=== PATIENT | female | born 1945 | race Caucasian/White ===

== ENCOUNTER 2022-01-28 13:06 | Outpatient (RCR) | payer MEDICARE, SELFPAY | END 2022-07-27 23:59 | disposition home or self-care (01) | LOC: CCIC 13:06 | PROVIDERS: PCP Physician Assistant Medical; Visit Provider Internal Medicine Hematology & Oncology | DX: D05.12 Intraductal carcinoma in situ of left breast (principal); M85.80 Other specified disorders of bone density and structure, unspecified site | CPT/HCPCS: 99212; 99213; 99214 ==

== ENCOUNTER 2022-06-30 14:15 | Outpatient (RCR) | payer MEDICARE, SELFPAY | END 2022-07-07 16:47 | disposition home or self-care (01) | PROVIDERS: PCP Physician Assistant Medical; Visit Provider Physician Assistant Medical | DX: M81.0 Age-related osteoporosis without current pathological fracture (principal); R26.9 Unspecified abnormalities of gait and mobility; Z51.89 Encounter for other specified aftercare | CPT/HCPCS: 97110; 97112; 97161 ==

== ENCOUNTER 2022-09-15 07:43 | Day surgery (SDC) | payer MEDICARE, SELFPAY ==
[2022-09-15] VITALS (12 sets, daily range): BP systolic 111–152; BP diastolic 52–106; PULSE 72–91; RESP 11–135; TEMP 36.1–36.7; O2SAT 93–100; BMI 36.1
[2022-09-15] MEDS: LACTATED RINGERS 1000 ML 1,000 ML 100 ML IV (08:20)
[2022-09-15] MEDS: SODIUM CHLORIDE 0.9 % (FLUSH) 10 ML SYRINGE IVF (08:20)
--- NOTE | 2022-09-15 08:57 | CRLHL7_ITS ---
For Patients: As a result of the Century Cures Act, medical imaging exams and procedure reports are released immediately into your electronic medical record. You may view this report before your referring provider. If you have questions, please contact your health care provider. Indication: Implant removal Technique: Images of the right knee and tibia and fibula. Comparison : X-ray 07/18/2022 Findings : Previous tibial intramedullary thai and screw have been removed. Old fracture deformity along the distal tibia. Please refer to the performing physician report for full details. Old fracture deformity of the proximal fibula. Five images total 5.3 seconds fluoro time Dictated by Janessa Goddard MD @ 09/15/2022 11:39:27 AM (Electronically Signed)
--- NOTE | 2022-09-15 09:09 | W.ANESCHARGE ---
Anesthesia Charges Start Date/Time Anesthesia Start Date: 09/15/22 Anesthesia Start Time: 09:43 Stop Date/Time Anesthesia Stop Date: 09/15/22 Anesthesia Stop Time: 11:39 Summary Extremes of Age - Over 70 or under 1: MDA
[2022-09-15] MEDS: CEFAZOLIN 2 GM in 0.9 % SODIUM CHLORIDE Mini-bag 100 ML IVPB (09:52)
--- NOTE | 2022-09-15 11:29 | P.ORPRC_ITS ---
Procedure Note Date of procedure: 09/15/22 Procedure: PREOPERATIVE DIAGNOSIS: 1. Right tibia retained deep implant (tibial IM nail) POSTOPERATIVE DIAGNOSIS: 1. Right tibia retained deep implant (tibial IM nail) PROCEDURE: 1. Right tibia retained deep implant open removal (tibial IM nail and interlocking screws) 2. C-arm fluoroscopic imaging (less than 1 hour) interpreted by me throughout the procedure SURGEON: Baljeet Akins MD. DATA SCIENCES DIRECTOR: VALERIE Zamora - Of note, an psychiatric assistant was critical for this case to aid in patient positioning, tissue retraction, limb manipulation/positioning, and closure. ANESTHESIA: General anesthetic IMPLANTS: None TOURNIQUET: 65 minutes at 260 torr COMPLICATIONS: None evident INDICATIONS: The patient is a pleasant 77-year-old female who sustained a right distal 1/3 tibial fracture approximately 1 year ago (09/2021). She underwent tibial IM nail. At that time, the nail was placed with distal interlocking screws holding the fracture stable. Unfortunately, the ostial parotid bone and slight fracture translation cause the nail to become proud distally through the distal tibia. As such, once the fracture was united, decision was made for deep implant removal of the tibial IM nail and the interlocking screws. This was after thorough conversation and helping her understand the pros and cons of leaving the nail versus removal. DESCRIPTION OF PROCEDURE: Following a thorough discussion of risks, benefits, and alternatives consent was obtained and the operative extremity was marked. The patient was brought to the operating room and placed supine on the operating table. 1 g IV Ancef was administered within 1 hour incision preoperatively. P rosario time-out was performed identifying proper patient, site, and procedure. The operative extremity was prepped and draped in the appropriate sterile fashion using ChloraPrep. The limb was exsanguinated and the tourniquet inflated. We began removal of the distal interlocking screws. After identifying them with C-arm fluoroscopic imaging, an incision was made and blunt dissection through subcutaneous tissue down to the depth of bone. Again the screws were completely buried under bone/bone and overgrown them. We ended up using a hole saw/screw move all set and cord around the screw head. Once the head was identified, both screws were removed without difficulty. We then turned attention to the more proximal interlocking screws. Sharp incision through skin and blunt dissection of subcutaneous tissue allowed identification of the screw heads just deep to the periosteum. The screws were identified, removed without difficulty, and a thorough irrigation normal saline was performed. Finally, we turned our attention to the proximal tibia/anterior knee incision. Sharp incision through skin and blunt dissection through subcutaneous tissue allowed identification of the patellar tendon. Just medial to the patellar tendon incision was made approaching the joint itself through the fat pad. This allowed us to retract the patellar tendon laterally, identify the proximal nail, and remove interposed fibrous tissue. The end cap was found, removed without difficulty, and allowed exposure of the nail proximal portion. The nail removal adapter was inserted into the proximal nail, and a slap hammer utilized to remove the tibial IM nail. This occurred without undue trauma to the rest of the tibia or the rest of the tissues. C-arm fluoroscopic imaging again confirmed that the tibia remained intact. Manipulation of the leg itself showed no instability or crepitus. At this stage, the tourniquet was deflated and hemostasis achieved. Closure was performed with 3-0 Vicryl and 4-0 Stratafix for the various subcutaneous and subcuticular layers. Soft dressings were applied, and the patient was awoken/transferred to the recovery room in stable condition. PLAN: 1. Encourage elevation of the operative extremity. 2. Range of motion of the operative extremity/digits as tolerated. 3. Ibuprofen, acetaminophen and/or Percocet as needed for pain. 4. Follow up with PA visit in 12-16 days for wound check and suture removal.
[2022-09-15] MEDS: fentaNYL 100 MCG/2 ML inj IVP (12:00)
--- NOTE | 2022-09-15 12:22 | W.ANESCHARGE ---
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
[2022-09-15] MEDS: OxyCODONE/APAP 5-325 TABLET PO (12:34)
== END 2022-09-15 13:15 | disposition home or self-care (01) ==
PROVIDERS: PCP Physician Assistant Medical; Visit Provider Orthopaedic Surgery Sports Medicine
PROC: (CPT 20680; principal; 2022-09-15 10:00)
DX: Z47.2 Encounter for removal of internal fixation device (principal)
CPT/HCPCS: 20680; 01392; 01480; 73590; 76000; 99100; A9270; J0330; J0690; J1100; J1170; J2250; J2405; J2704; J3010; J3490; J7120

== ENCOUNTER 2022-10-24 08:15 | Outpatient (RCR) | payer MEDICARE, SELFPAY ==
--- NOTE | 2022-10-21 09:49 | PT.OPEX ---
PT [place] Outpatient Eval PT [facility] Outpatient Eval Start: 10/17/22 09:27 Freq: Status: Active Protocol: Document 10/17/22 17:00 SCOTT (Rec: 10/17/22 17:01 [facility] [id number]) E-signed By Triny Pressley PT Physical Therapy Outpatient Evaluation Insurance Information Recert Due Date 01/10/23 Insurance Name [facility] Care Insurance Information/Comments [facility]LY [facility] Medical Diagnosis RIGHT LEG/ANKLE PAIN M25.571 Treating Diagnosis GAIT ABN R26.9 UNSTEADINESS ON FEET 26.81 Referring MD VARELA Subjective Subjective MY ANKLE HURT PRETTY BAD WHEN HE FIRST TOOK THE METAL OUT BUT IT'S DOING PRETTY GOOD TODAY. 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 VARELA REFERRED TO PHYSICAL THERAPY S/P HARDWARE REMOVAL (09/15/22) TO EVAL AND TX. PMHX INCLUDES LEFT TKA 2012, OA, AND OSTEOPOROSIS WITH H/O FALLS WHICH SHE SUSTAINED FRACTURE TO LEFT TIBIA/FIBULA FX REQUIRING ORIF 09/2021. SHE LIVES ALONE IN A SR LIVING APARTMENT W/O STAIRS WITH WALK IN SHOWER NOTING 2 GRAB BARS. SHE IS AMB WITH A SPC TODAY BUT WOULD LIKE TO WALK WITHOUT AN ASSISTIVE DEVICE IF SHE IS ABLE. 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 ADDITIONALLY, HER GAIT IS MUCH LIKE A WADDLE BUT, AGAIN THIS IS ALONG HISTORY. 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 HER BROTHER IS ASSISTING HER WITH GROCERY SHOPPING AND DRIVING HER TO AND FROM HER APPT BUT SHE WOULD LIKE TO START TESTING THE ANG AND DRIVE IN A PARKING LOT. HER PATIENT CENTERED GOAL IS TO RETURN TO HER PRODUCT TEST SPECIALIST JOB WELL , I JUST WANT TO GET BACK TO MY LIFE WITHOUT FALLING AGAIN. SHE IS APPROPRIATE FOR SKILLED PHYSICAL THERAPY TO ADDRESS SYMPTOM MGMT, GT ON A VARIETY OF SURFACES, FUNCTIONAL STRENGTH AND BALANCE TRAINING. SHE IS PROVIDED AN INITIAL HEP TO PERFORM DAILY AND WILL RETURN NEXT WEEK TO PROGRESS AND ADDED BALANCE TRAINING PER TOLERANCE. Primary Functional Limitations GAIT BALANCE STDG >15 MIN STRENGTH TRANSFERS STAIRS Plan of Care Rehabilitation Potential Good Physical Therapy Goals 1. PATIENT WILL TOLERATE PROLONGED STDG >15MIN TO ALLOW HER TO COMPLETE IADL'S IN 4-6 WEEKS. 2. PATIENT WILL IMPROVE HER TUG FROM 22SEC TO 15 SEC IN ORDER REDUCE HER RISK FOR FALLS AND SUBSEQUENT INJURY IN 4-6 WEEKS. 3. PATIENT WILL BE ABLE TO AMB LIMITED COMMUNITY DISTANCES TO MANAGE HER OWN GROCERY SHOPPING AND PARTICIPATE IN FAMILY CENTERED ACTIVITIES SAFELY IN 4-6 WEEKS. 4. PATIENT WILL BE INDEPENDENT WITH HER HEP AND DEMONSTRATE THE ABILITY TO SELF PROGRESS IN 4-6 WEEKS. Coordination/Communication With Referral Source Treatment Plan/Direct Interventions Gait Training,Heat,Ice/Cold/ Vasopneumatic,Joint Mobilization,Manual Therapy, Neuromuscular Re-ed, Therapeutic Activities, Therapeutic Exercises Frequency/Duration 1-2X/4-6WEEKS Patient Will Be Discharged From Therapy Completion of LTG(s), Independently Progressing Discharge Plan Comments DISCHARGE TO SELF AND INDEPENDENT HEP WHEN GOALS MET OR MAX POTENTIAL ACHIEVED Evaluation Billing Untimed Code Treatment Minutes 20 PT Eval No Charge No Complexity Moderate Certification Information Initial Certification Date 10/18/22 Ending Certification Date 01/10/23 Provider Signature Shows Agreement With POC & Medical Necessity Physician Signature & Date Requested Please Sign/Date Here Physician Comment/Change : Physician NPI Number #
== END 2023-02-05 16:35 | disposition home or self-care (01) ==
PROVIDERS: PCP Physician Assistant Medical; Visit Provider Physician Assistant Surgical
DX: M25.571 Pain in right ankle and joints of right foot (principal); R26.9 Unspecified abnormalities of gait and mobility; R26.81 Unsteadiness on feet; Z51.89 Encounter for other specified aftercare
CPT/HCPCS: 97110; 97162

== ENCOUNTER 2023-05-05 14:16 | Outpatient (CLI) | payer MEDICARE, SELFPAY | END 2023-05-05 14:17 | disposition home or self-care (01) | LOC: INJ CL 14:18 | PROVIDERS: PCP Physician Assistant Medical; Visit Provider Family Medicine | DX: M17.11 Unilateral primary osteoarthritis, right knee (principal); M25.561 Pain in right knee | CPT/HCPCS: 64454 ==

== ENCOUNTER 2023-06-02 13:04 | Outpatient (CLI) | payer MEDICARE, SELFPAY ==
--- OUTSIDE RECORDS SUMMARY | 2023-06-02 13:07 | XMS_ITS | Clinical Summary ---
Author Name Unknown Organization [facility] Address [place], [place] [address] Care Team Providers Care Seconds Grader Name Role Phone Soila Pratt MD Unavailable [phone] Dariusz Dial MD Unavailable [phone] Mary Solorio Primary Care Provider Zia Sanchez MD Unavailable [phone] Allergies Active Allergy Reactions Criticality Noted Date Comments Amoxicillin-Pot Clavulanate Hives 07/27/19 15 Medications Medication Sig Dispensed Refills Start Date End Date Status cholecalciferol, Vitamin D3, 5,000 unit tab tablet Take by mouth once daily. 0 12/10/2016 Active calcium carbonate (CALTRATE) 600 mg calcium (1,500 mg) tablet Take 1 tablet by mouth once daily. 0 06/23/2018 Active ferrous sulfate, 45 mg elemental, (SLOW FE) 142 mg (45 mg iron) Extended-Release tabletIndications:Iron deficiency anemia, unspecified iron deficiency anemia type Take 1 tablet by mouth once daily. 90 Each 0 01/26/2019 Active vit C,M-Ry-iqlzk-lutein-william maria esther (Healthy Eyes Lutein-Zeaxanthin) 60 mg-13.5 mg- 15 mg-2 mg-6 mg cap 0 08/05/2022 Active denosumab (PROLIA SUBQ) Inject subcutaneous. 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 02/27/20 15 Resolved Problems Problem Noted Date Diagnosed Date Resolved Date Mixed hearing loss, unilateral 10/09/2014 02/26/2015 Sensorineural hearing loss, unilateral 10/09/2014 02/26/2015 Encounters Date Type Department Care Team Description 06/02/2023 Travel 05/30/2023 Travel 05/05/2023 3:00 PM LOT BOSS Procedure Only [facility] at [address] [address] Dariusz Dial MD Procedure (Right knee genicular nerve block ) 05/05/2023 Travel 03/23/2023 10:40 AM CDT Office Visit [facility] [address] [place] [address] Dariusz Dial MD Musculoskeletal Problem (Follow up right knee pain wanting to discuss injection or repeat Coolief) 03/23/2023 Travel 03/18/[address] [address] Zia Sanchez MD 03/12/2023 1:00 PM CDT Ancillary Procedure [facility] [address] [place] [address] 03/12/2023 Travel 03/05/2023 12:30 PM CDT Office Visit [facility] [address] [place] [address] César Harper AuD Hearing Problem 03/05/2023 Travel 03/03/2023 9:00 AM CDT Office Visit [facility] [address] [place] [address] Zia Sanchez MD Recheck (left ear ) 03/02/2023 8:00 AM CDT Nurse/Clinic Staff Only [facility] [address] [facility] [place] [address] Immunization/Injection (PROLIA INJECTION ) 03/02/2023 Travel from Last 3 Months Immunizations Name Administration Dates Next Due AMB INFLUENZA IIV3 (AGE 65+ YRS) PF (Flu Clinic Only) 02/15/2018 Amb Influenza, Inact (High-d ose) (Flu Clinic Only) 02/21/2016 COVID-19 vaccine ([employer] NTech 30mcg/0.3mL) PF, MDV 08/04/2020,07/14/2020 Influenza RIV4 (Age 18+ Year s) PRESERV FREE 02/22/2019 Influenza, High-dose Inactivated 02/21/2016 Influenza, High-dose Quadriv alent Inactivated 02/02/2023,02/06/2022,02/13/2021,01/16 Influenza, Inactivated IIV3 (Age 65+ Years) Preserv Free 03/25/2017 Pneumococcal Poly,23-Valent (Pneumovax) 07/26/2014 Pneumococcal conj 13-Valent (Prevnar 13) 07/31/2015 RSV, Recombinant ADJ Reconst ituted (Arexvy 120MCG/0.5mL) 02/13/2023 Tdap 10/26/2014 Zoster (Shingrix-RZV, recombinant) 05/05/2018, Family History Medical History Relation Name Comments Other Father Alzheimer's Cancer Mother stomach and annie er Liver cancer Son Cancer-breast No Family History Relation Name Status Comments Father Mother Son (Age 40) Social History Tobacco Use Types Packs/Day Years Used Date Smoking Tobacco: Never Smokeless Tobacco: Never Tobacco Cessation:Counseling Given: Yes Alcohol Use Standard Drinks/Week Comments Yes 0 (1 standard drink = 0.6 oz pur e alcohol) occasional wine PHQ-2 Answer Date Recorded PHQ-2 TOTAL SCORE 0 08/12/2022 Social Connections Answer Date Recorded Frequency of Communication with Friends and Fami ly Not on file 12/03/2022 Financial Resource Strain Answer Date R ecorded Difficulty of Paying Living Expenses 3 12/02/2021 Difficulty of Paying Living Expenses Not on file 12/02/2021 Food Insecurity Answer Date Recorded Worried About Running Out of Food in the Last Ye ar 1 12/02/2021 Transportation Needs Answer Date Record ed Lack of Transportation (Medical) 1 12/02/2021 Housing Stability Answer Date Recorded Unable to Pay for Housing in the Last Year 1 12/02/2021 Sex and Gender Information Value Date Recorded Sex Assigned at Not on file Gender Identity Not on file Sexual Orientation Not on file Obstetrics History Last Filed Vital Signs Vital Sign Reading Time Taken Comments Blood Pressure 125/83 03/23/2023 10:40 AM CDT Pulse 68 03/23/2023 10:40 AM CDT Temperature 36.6 ??C (97.8 ??F) 03/23/2023 10:40 AM C DT Respiratory Rate 16 10/14/2022 8:43 AM CDT Oxygen Saturation 97% 03/23/2023 10:40 AM CDT Inhaled Oxygen Concentration - - Weight 73 kg (161 lb) 09/09/2022 8:06 AM CDT Height 144 cm (4' 8.69) 09/09/2022 8:06 AM CDT Body Mass Index 35.22 09/09/2022 8:06 AM CDT Plan of Treatment Upcoming Encounters Date Type Department Care Team (Late st Contact Info) Description 06/02/2023 2:00 PM LOT BOSS Procedure Only [facility] at [facility] [address] [place] [address] Dariusz Dial MD [address] [place] [address] Arrived 08/17/2023 7:20 AM CDT Ancillary Procedure [facility] [address] [place] [address] 08/17/2023 8:10 AM CDT Office Visit [facility] [address] [place] [address] Mary Solorio PA [address] [place] [address] 09/03/2023 7:45 AM CDT Nurse/Clinic Staff Only [facility] [address] [place] [address] 09/18/2023 9:00 AM CDT Ancillary Procedure [facility] [address] [place] [address] Health Maintenance Due Date Last Done Comments COVID-19 vaccine series (2022- season) 2023 02/06/2022, 08/22/2021, 03/10/2021, Additional history exists Medicare Wellness for age 65+ 08/12/2023, 08/12/2021, 08/08/2020, Additional history exists Depression screening for age 12+ 08/13/2023 08/12/2022, 08/12/2021, 08/12/2021, Additional history exists BMI (ht and wt on same day) for age 18+ 09/10/2023 09/09/2022, 08/12/2022, 08/12/2021, Additional history exists Tetanus booster 10/26/2024 10/26/2014 Tdap Completed 10/26/2014 Pneumococcal series for age 65+ Completed 6, 07/26/2014 Hepatitis C screening for ag e 18-79 Completed 08/04/2016 Zoster (shingles) series for age 50+ Completed 05/05/2018, 02/01/2018 CT Colonography for age 45-75 Discontinued 04/25/2021 DEXA/DXA scan for age 65+ Completed 2021, 11/24/2019, 11/02/2017, Additional history exists Influenza for age 65+ Completed 02/02/2023 , 02/06/2022, 02/13/2021, Additional history exists Medical Devices Implanted Type Area Donor Relations Officer Device Identifier Shelf Expiration Date Model / Serial / Lot Implnt Porp 2mm Centered Titan [id number] - [id number] Implanted:Qty: 1 on 11/03/2014 by Reg Montez MD at [facility] [employer] [facility] 04/05/2024 [id number] / / [id number] Procedures Procedure Name Priority Date/Time Associated Diagnosis Comments ID INJECTION AA&/STRD GENICULAR NRV BRANCHES W/IMG Routine 05/05/2023 12:00 AM LOT BOSS Chronic pain of right knee Primary osteoarthritis of right knee CT TEMPORAL BONES WO Routine 03/12/2023 1:20 PM CDT History of mastoidectomy Cholesteatoma of left mastoid from Last 3 Months Results * ID INJECTION AA&/STRD GENICULAR NRV BRANCHES W/IMG (05/05/2023 12:00 AM LOT BOSS) Dariusz Dial MD PB - NERVOUS SYSTE M SERVICES * CT TEMPORAL BONES WO (03/12/2023 1:20 PM CDT) Anatomical Region Laterality Modality HEAD Computed Tomogra phy 03/16/2023 11:1 5 AM CDT Impressions 03/16/2023 11:15 AM CDT 1. Normal right temporal bone structures 2. Stable left canal wall up mastoidectomy. Soft tissue density/debris extends into the epitympanum. Thickening and retraction of the tympanic membrane is unchanged. 3. 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 Stable thinning of the tegmen tympani. 4. Normal left inner ear structures. Please note that all CT scans at this facility use dose modulation, iterative reconstruction, and/or weight-based dosing when appropriate to reduce radiation dose to as low as reasonably achievable. Dictated by Filippo Ramirez MD @ 03/16/2023 11:15:24 AM (Electronically Signed) Narrative 03/16/2023 11:15 AM CDT For Patients: ??As a result of the Century Cures Act, medical imaging exams and procedure reports are released immediately into your electronic medical record. ??You may view this report before your referring provider. ??If you have questions, please contact your health care provider. INDICATION: Left ear surgery. COMPARISON: 07/16/2021. TECHNIQUE: Noncontrast CT of the mandaen bones. FINDINGS: Right: The right mastoid air cells and mastoid antrum are clear. Middle ear cavity is clear. Normal articulation of the ossicular chain. No opacification of sinus tympani. Normal tympanic membrane. The external auditory canal is patent. Tegmen tympani is intact. Normal mineralization of the otic capsule. Normal cochlea and vestibule. Normal internal auditory canal. Left: Stable postop changes of left canal wall up mastoidectomy. Opacification of residual left mastoid air cells. Soft tissue density/debris extends into the epitympanum. There is thickening and retraction of the tympanic membrane. Absence of the ossicular chain, malleus and incus) and partial ossicular replacement prosthesis in place. Thinning of tegmen tympani. Small focal dehiscence cannot be excluded. Normal mineralization the otic capsule. Normal cochlea and vestibule. Normal internal artery canal. Visualized paranasal sinuses are clear. Procedure Note Filippo Ramirez MD, PhD - 03/16/2023 For Patients: As a result of the Cures Act, medical imagingexams and procedure reports are released immediately into your electronicmedical record. You may view this report before your referring provider.If you have questions, please contact your health care provider. INDICATION: Left ear surgery. COMPARISON: 07/16/2021. TECHNIQUE: Noncontrast CT of the mandaen bones. FINDINGS: Right: The right mastoid air cells and mastoid antrum are clear. Middleear cavity is clear. Normal articulation of the ossicular chain. Noopacification of sinus tympani. Normal tympanic membrane. The externalauditory canal is patent. Tegmen tympani is intact. Normal mineralizationof the otic capsule. Normal cochlea and vestibule. Normal internalauditory canal. Left: Stable postop changes of left canal wall up mastoidectomy.Opacification of residual left mastoid air cells. Soft tissuedensity/debris extends into the epitympanum. There is thickening andretraction of the tympanic membrane. Absence of the ossicular chain,malleus and incus) and partial ossicular replacement prosthesis in place.Thinning of tegmen tympani. Small focal dehiscence cannot be excluded. Normal mineralization the otic capsule. Normal cochlea and vestibule.Normal internal artery canal. Visualized paranasal sinuses are clear. IMPRESSION: 1. Normal right temporal bone structures 2. Stable left canal wall up mastoidectomy. Soft tissue density/debrisextends into the epitympanum. Thickening and retraction of the tympanicmembrane is unchanged. 3. 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 Stable thinning of the tegmen tympani. 4. Normal left inner ear structures. Please note that all CT scans at this facility use dose modulation,iterative reconstruction, and/or weight-based dosing when appropriate toreduce radiation dose to as low as reasonably achievable. Dictated by Filipop Ramirez MD @ 03/16/2023 11:15:24 AM (Electronically Signed) Zia Sanchez MD CT from Last 3 Months Advance Directives Latest Code Status on File Code Status Date Activated Date Inactivated Comments DNR 02/19/2022 7:27 AM 02/19/2022 3:37 PM Question Answer Comments Code Status Discussion: Reviewed Preferences Code Status History Code Status Date Activated Date Inactivated Comments Full Code 02/19/2022 6:13 AM 02/19/2022 7:27 AM Question Answer Comments Code Status Discussion: Unable to Assess Preferences, Provider to review later Full Code 11/03/2014 8:29 AM 11/03/2014 4:47 PM Care Teams Seconds Grader Relationship Specialty Start Date End Date [place] [address] [address] PCP - General Physician Vice President Corporate Communications 08/13/21 Soila Pratt MD Oncology 08/08/20 Dariusz Dial MD [address] [facility] [address] Sports Medicine - Family Medicine 08/08/20 Zia Sanchez MD [address] [place] [address] Paty JENNIFERIRMA NARANJO [address] Otolaryngology Surgery - Otolaryngology 08/13/21
== END 2023-06-02 13:05 | disposition home or self-care (01) ==
LOC: INJ CL 13:05
PROVIDERS: PCP Physician Assistant Medical; Visit Provider Family Medicine
DX: M17.11 Unilateral primary osteoarthritis, right knee (principal); M25.561 Pain in right knee; G89.29 Other chronic pain
CPT/HCPCS: 64624; J2250; J3010

== ENCOUNTER 2023-09-28 10:48 | Outpatient (RCR) | payer MEDICARE, SELFPAY ==
--- NOTE | 2023-09-28 12:24 | PT.OPEX ---
[facility] PT [facility] Outpatient Eval Start: 09/28/23 10:58 Freq: Status: Active Protocol: Document 09/28/23 10:58 AMS (Rec: 09/28/23 11:07 [facility] [id number]) E-signed By Lluvia Hewitt PT Physical Therapy Outpatient Evaluation Insurance Information Recert Due Date 12/22/23 Insurance Name Medicare B Medical Diagnosis Presence of right artificial knee joint on 10/05/23 Right knee osteoarthritis Treating Diagnosis Right knee pain/stiffness Difficulty walking Aftercare following joint replacement Referring MD Baljeet Akins MD Subjective Subjective Jelena returns today with ongoing right knee pain. Presents with a cane today for ambulation assistance. Presents with her friend today . She states her knee is painful. The patient has tried ice, Tylenol/oral NSAIDs, rest, activity modification, RFA x2, cortisone injections all with minimal and non- lasting relief. The most recent RFA only provided her a couple of weeks of relief. The pain is of the anterior knee. Her pain is worse with prolonged sitting to standing. -Dr. Akins, 08/25/23, confirmed by patient Patient presents for pre- operative appt with sister-in- law, Yazmin, prior to right total knee arthroplasty scheduled for 10/[address] Akins. She has a PMHx of osteoporosis, L knee replacement in 2013, osteoporotic fracture of R tibia in 3 places last September after a fall with subsequent ORIF, which has since healed, and altered gait (long- standing on R). * home set up: Lives in a one -level condo by herself (see pre-op note for full details). She owns a 4WW and cane, cutlery grinder, shower chair/bench, and has grab bars in bathroom, elevated toilet seat, and walk in shower. * equipment: Uses a single point cane in L hand for all mobility. She has used this for many years. * caregiver assistance: None following surgery, as her tqyvpl-uz-vka and brother Marcelino will be out of town for a few weeks. States she does have some neighbors she can call in case of emergency, however. Her plan is to stay in the custodial facility until she is ready to discharge home by herself. She is waiting to schedule outpatient therapy until she knows when she is discharging/when she will be home. * pain level: 0/10 at best/ rest, 10/10 at worst * previous treatment: ice, Tylenol, radiofrequency ablation x 2, cortisone injections (last one in May), activity modification * Functional limitations: extended walking more than a few blocks, squatting, standing, weightbearing activities, etc * Previous exercise: States she does a balance/strength exercise program class 2x/week with rep from the senior center who comes to her condo. Tries to do this as much as she can. 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) - told work she would be gone at least 6 weeks Preferred Name Jelena Precautions Treatment Precautions/Contraindications Osteoporosis w/ hx of fracture w/ ORIF of R tibia in September 2022, fall risk, hx of L total knee replacement 2013 Weight Bearing Status Weight Bear as Tolerated Objective Other/Pertinent Objective Knee ROM L 0-0-121 R 0-0-101 w/ pain Hip ROM: not assessed this visit Strength: Hip flexors: R 4/5 L 4/5 Knee extensors: R 4/5 L 4+/5 Knee flexors: R 4/5 L 4+/5 Gait/balance: Ambulates with use of single point cane in left hand and step through pattern, significantly increased R hip external rotation, moderately antalgic on R, decreased swingthrough/ knee flexion. Palpation/joint mobility: No tenderness to palpation over medial or lateral joint line. Swelling/observation: No visible swelling, although visible scar over anterior knee from previous surgery. Increased R hip external rotation w/ gait/transfers. Atrophy of R VMO. Assessment Assessment/Impression Patient is a 78 year old female presenting for pre- operative visit prior to right total knee arthroplasty scheduled for 10/05/23. Upon assessment, patient demonstrates decreased knee ROM, decreased proximal hip/ quad strength, and antalgic/ impaired gait pattern. These impairments lead to difficulties with standing, walking longer distances, squatting, and performing curbs/stairs in community. Patient will be seen post operatively to reassess impairments that will be addressed with skilled care. As patient does not have any family in town to care for her after surgery, she is planning to stay in a custodial facility until she can safely discharge home alone after surgery. Due to this, she has not yet scheduled outpatient therapy, but plans to once she knows her discharge date. Jelena would greatly benefit from skilled PT in order to progress strength, ROM, and ambulation post operatively in order to perform all household and work duties without significant difficulty or discomfort. Primary Functional Limitations standing, walking longer distances, squatting, and performing curbs/stairs in community Goals: return to walking longer distances Plan of Care Rehabilitation Potential Fair Physical Therapy Goals After pre-op visit: ? Patient will be independent with HEP ? Patient will verbalize knowledge of stair navigation and proper sequencing ? Patient will have knowledge on home adaptations and use of assistive devices post operatively ? Patient will have knowledge of edema management ALL MET Coordination/Communication With Referral Source Treatment Plan/Direct Interventions Compression Garments,Gait Training,Ice/Cold/ Vasopneumatic,Joint Mobilization,Manual Therapy, Neuromuscular Re-ed,Self-Care/ Home Management,Therapeutic Activities,Therapeutic Exercises Frequency/Duration 1x visit prior to surgery on . Patient scheduled to start outpatient PT s/p TKA on TBD date. Has HEP to start with pre-operatively. Patient Will Be Discharged From Therapy Completion of LTG(s), Independent w/HEP, Independently Progressing Evaluation Billing Untimed Code Treatment Minutes 15 Complexity Low Certification Information Initial Certification Date 09/28/23 Ending Certification Date 12/22/23 Provider Signature Shows Agreement With POC & Medical Necessity Physician Signature & Date Requested Please Sign/Date Here Physician Comment/Change : Physician NPI Number #
== END 2024-01-26 23:59 | disposition home or self-care (01) ==
PROVIDERS: PCP Physician Assistant Medical; Visit Provider Orthopaedic Surgery Sports Medicine
DX: M17.11 Unilateral primary osteoarthritis, right knee (principal); Z96.651 Presence of right artificial knee joint; R26.2 Difficulty in walking, not elsewhere classified; Z47.1 Aftercare following joint replacement surgery; M25.561 Pain in right knee; M25.661 Stiffness of right knee, not elsewhere classified; Z51.89 Encounter for other specified aftercare
CPT/HCPCS: 97110; 97161

== ENCOUNTER 2023-12-07 07:07 | Inpatient (IN) | payer MEDICARE, SELFPAY ==
[2023-12-07] VITALS (24 sets, daily range): BP systolic 90–141; BP diastolic 61–98; PULSE 56–105; RESP 16–20; TEMP 35.7–37; O2SAT 93–100; BMI 34.2
--- OUTSIDE RECORDS SUMMARY | 2023-12-07 07:11 | XMS_ITS | Clinical Summary ---
Author Organization [facility] [facility] Address [place], [place] [address] Care Team Providers Care Archives Director Name Role Phone Soila Pratt MD Unavailable [phone] Dariusz Dial MD Unavailable [phone] Mary Solorio Primary Care Provider Zia Sanchez MD Unavailable [phone] Allergies Active Allergy Reactions Criticality Noted [...] tablet by mouth once daily. 90 Each 01/26/2019 Active vit C,D-Er-xfdku-lutein-william maria esther (Healthy Eyes Lutein-Zeaxanthin) 60 mg-13.5 mg- 15 mg-2 mg-6 mg cap 08/05/2022 Active denosumab (PROLIA SUBQ) Inject subcutaneous. Active Hospital, Clinic, or Other Facility Administered Medication Ordered Dose Route Frequency Start Date End Date Status denosumab (PROLIA) injection 60 mgIndications:Osteoporosis , unspecified osteoporosis type, unspecified pathological fracture presence 60 mg SubQ Q 26 WEEKS 09/03/2023 09/01/2024 Active Active Problems Problem Noted Date Diagnosed [...] Encounters Date Type Department Care Team Description 11/23/2023 7:50 AM CDT Preop Visit [facility] [address] [place] [address] Mary Solorio PA Preoperative Exam (R knee) 11/23/2023 Travel 09/21/2023 7:50 AM CDT Preop Visit [facility] [address] [place] [address] Mary Solorio PA Preoperative Exam (R knee); Derm Problem (Check L breast - spilled hot coffee on it x 1 week ago) 09/21/2023 Travel from Last 3 Months Immunizations Name Administration Dates Next Due AMB INFLUENZA IIV3 (AGE 65+ YRS) PF (Flu Clinic Only) 02/15/2018 Amb Influenza, Inact (High-d ose) (Flu Clinic Only) 02/21/2016 COVID-19 vaccine ([facility]ech 30mcg/0.3mL) PF, MDV 08/04/2020,07/14/2020 Influenza RIV4 [...] Family History Medical History Relation Name Comments Cancer-colon Brother Other Father Alzheimer's Cancer Mother stomach and annie er Liver cancer Son Cancer-breast No Family History Relation Name Status Comments Brother Father Mother Son (Age 40) Social History Tobacco Use Types Packs/Day Years Used Date Smoking Tobacco: Never Smokeless Tobacco: Never Tobacco Cessation:Counseling Given: Yes Alcohol Use Standard Drinks/Week Comments Yes 0 (1 standard drink = 0.6 oz pur e alcohol) occasional wine PHQ-2 Answer Date Recorded PHQ-2 TOTAL SCORE 0 08/17/2023 Social Connections Answer Date Recorded Frequency of Communication with Friends and Fami ly 0 09/21/2023 Financial Resource Strain Answer Date R ecorded Difficulty of Paying Living Expenses 3 09/21/2023 Difficulty of Paying Living Expenses Not on file 09/21/2023 Food Insecurity Answer Date Recorded Worried About Running Out of Food in the Last Ye ar 1 09/21/2023 Transportation Needs Answer Date Record ed Lack of Transportation (Medical) 1 09/21/2023 Housing Stability Answer Date Recorded Unable to Pay for Housing in the Last Year 1 09/21/2023 Sex and Gender Information Value Date Recorded Sex Assigned at Not on file Gender Identity Not on file Sexual Orientation Not on file Obstetrics History Last Filed Vital Signs Vital Sign Reading Time Taken Comments Blood Pressure 126/74 11/23/2023 7:56 AM CDT Pulse 57 11/23/2023 7:56 AM CDT Temperature 36.6 ??C (97.8 ??F) 03/23/2023 10:40 AM C DT Respiratory Rate 16 10/14/2022 8:43 AM CDT Oxygen Saturation 96% 11/23/2023 7:56 AM CDT Inhaled Oxygen Concentration - - Weight 69.4 kg (153 lb) 11/23/2023 7:56 AM CDT Height 144 cm (4' 8.69) 11/23/2023 7:56 AM CDT Body Mass Index 33.47 11/23/2023 7:56 AM CDT Plan of Treatment Upcoming Encounters Date Type Department Care Team (Late st Contact Info) Description 03/07/2024 7:45 AM CDT Nurse/Clinic Staff Only [facility] [address] [place] [address] Health Maintenance Due Date Last Done Comments Influenza for age 65+ 01/24/2024 02/02/2023 , 02/06/2022, 02/13/2021, Additional history exists Medicare Wellness for age 65+ 08/17/2024, 08/12/2022, 08/12/2021, Additional history exists Depression screening for age 12+ 08/18/2024 08/19/2023, 08/17/2023, 08/12/2022, Additional history exists Tetanus booster 10/26/2024 10/26/2014 BMI (ht and wt on same day) for age 18+ 11/22/2024 11/23/2023, 09/21/2023, 08/17/2023, Additional history exists Tdap Completed 10/26/2014 Pneumococcal series for age 65+ Completed 6, 07/26/2014 Hepatitis C screening for ag e 18-79 Completed 08/04/2016 Zoster (shingles) series for age 50+ Completed 05/05/2018, 02/01/2018 CT Colonography for age 45-75 Discontinued 04/25/2021 DEXA/DXA scan for age 65+ Completed 2021, 11/24/2019, 11/02/2017, Additional history exists COVID-19 vaccine series Completed 08/10/19, 02/19/2023, 02/06/2022, Additional history exists Medical Devices Implanted Type Area Director Of Manufacturing Operations Device Identifier Shelf Expiration Date Model / Serial / Lot Implnt Porp 2mm Centered Titan [id number] - [id number] Implanted:Qty: 1 on 11/03/2014 by Reg Montez MD at [facility] [employer] 04/05/2024 [id number] / / [id number] Procedures Procedure Name Priority Date/Time Associated Diagnosis Comments HEMOGLOBIN Routine 11/23/2023 8:30 AM CDT Preop general physical exam Primary osteoarthritis of right knee Osteoporosis, unspecified osteoporosis type, unspecified pathological fracture presence BASIC METABOLIC PANEL Routine 11/23/2023 8:30 AM CDT Preop general physical exam Primary osteoarthritis of right knee Osteoporosis, unspecified osteoporosis type, unspecified pathological fracture presence EKG 12 LEAD Routine 09/21/2023 3:06 PM CDT Preop general physical exam AL READING EKG - NO CHARGE, COMP ONLY Routine 09/21/2023 3:05 PM CDT Preop general physical exam BASIC METABOLIC PANEL Routine 09/21/2023 8:17 AM CDT Preop general physical exam HEMOGLOBIN Routine 09/21/2023 8:17 AM CDT Preop general physical exam XR DXA BONE DENSITY 2 SITES AXIAL AND 1 SITE PERIPHERAL Routine 03/17/2022 10:52 AM CDT Menopausal symptoms CT ABDOMEN PELVIS COLONOGRAPHY DIAGNOSTIC W Routine 04/25/2021 12:53 PM INSURANCE OFFICE MANAGER History of colon polyps Diverticulosis of large intestine without hemorrhage Procedure and treatment not carried out for other reasons ANTI HCV Routine 08/04/2016 8:18 AM CDT Need for hepatitis C screening test from Last 3 Months or Most Recently Relevant to Health Maintenance Results * HEMOGLOBIN (11/23/2023 8:30 AM CDT) Only the most recent of2 resultswithin the time period is included. HEMOGLOBIN 12.1 12.0 - 16.0 g/dL 11/23/2023 8:39 AM CDT [facility] MCV 86 80 - 100 fL 11/23/2023 8:39 AM CDT [facility] Blood BLOOD SPECIMEN / Unknown Venipuncture / Unknown 11/23/2023 8:30 AM CDT 11/23/2023 8:31 AM CDT Mary PRITCHARD HEMATOLOGY [facility] [place] [address], [place] [phone] * (ABNORMAL) BASIC METABOLIC PANEL (11/23/2023 8:30 AM CDT) Only the most recent of2 resultswithin the time period is included. SODIUM 142 136 - 145 mmol/L 11/23/2023 6:50 PM CDT [facility] POTASSIUM 4.5 3.5 - 5.1 mmol/L 11/23/2023 6:50 PM CDT [facility] CHLORIDE 104 98 - 107 mmol/L 11/23/2023 6:50 PM CDT [facility] CO2,TOTAL 28 22 - 29 mmol/L 11/23/2023 6:50 PM CDT [facility] ANION GAP 10 5 - 18 11/23/2023 6:50 PM CDT [facility] GLUCOSE 85 70 - 99 mg/dL 11/23/2023 6:50 PM CDT [facility] CALCIUM 10.0 8.8 - 10.2 mg/dL 11/23/2023 6:50 PM CDT [facility] BUN 19 8 - 23 mg/dL 11/23/2023 6:50 PM CDT [facility] CREATININE 0.71 0.50 - 0.90 mg/dL 11/23/2023 6:50 PM CDT [facility] BUN/CREAT RATIO 27(H) 10 - 20 6:50 PM CDT [facility] eGFR 88(L) >90 mL/min/1.7 3m2 11/23/2023 6:50 PM CDT [facility] Comment:As of 2021, eG FR is calculated by the CKD-EPI creatinine equation without race adjustment. ??eGFR can be influenced by muscle mass, exercise, and diet. ??The reported eGFR is an estimation only and is only applicable if the renal function is stable. Blood BLOOD SPECIMEN / Unknown Venipuncture / Unknown 11/23/2023 8:30 AM CDT 11/23/2023 8:31 AM CDT Mary PRITCHARD CHEMISTRY [facility] [address] [place] [address], * EKG 12 LEAD (09/21/2023 3:06 PM CDT) Mary PRITCHARD EKG ORD * AL READING EKG - NO CHARGE, COMP ONLY (09/21/2023 3:05 PM CDT) Mary PRITCHARD PB - PROVIDER R EADINGS * (ABNORMAL) XR DXA BONE DENSITY 2 SITES AXIAL AND 1 SITE PERIPHERAL (03/17/2022 10:52 AM CDT) Anatomical Region Laterality Modality LUMBAR SPINE Other Impressions 03/20/2022 10:52 AM CDT Osteoporosis. RECOMMENDATIONS: The National Osteoporosis Foundation recommends pharmacologic treatment for patients with T-scores of -2.5 or less, patients with prior history of fragility fractures, or patients with 10-year probability of greater than 3% at hips or greater than 20% of suffering major osteoporotic fractures. Recommend continued optimization of calcium and vitamin D intake through dietary means and/or supplementation and regular exercise. Consider pharmacologic therapy for osteoporosis. Follow-up bone density reading in 2 years if therapy initiated to assess therapeutic efficacy. Mary Solorio PA-C [facility] 03/20/2022 Narrative 03/20/2022 10:52 AM CDT For Patients: Results are automatically released to your [facility] account once available, in compliance with federal regulations. This means that you may see your results before your provider has had a chance to review them. Please allow 2-3 business days for your provider to comment on the results. XR DXA Bone Mineral Density (BMD) EXAM LOCATION: [address] [address] PATIENT NAME: Jelena Dill DATE OF : 1945 EXAM DATE: 03/17/2022 REQUESTING PROVIDER: Mary Solorio PA GENDER AT : female HEIGHT: 4' 9 (02/19/2022) WEIGHT: ??151 lb 7.3 oz (02/19/2022) MENOPAUSAL STATUS: Postmenopausal RACE/ETHNICITY: White RISK FACTORS: Aromatase Inhibitors (Arimidex, etc.), Height Loss (2 inches or more), History of Fragility Fracture (at a major site) and White Race CURRENT MEDICATION FOR BONE LOSS: NONE INDICATION: Menopause COMPARISON DATE(S): 2014 DXA scans are compared to prior studies for a patient only when the two (or more) studies were performed on the same scanner. It is not possible to compare data generated on one scanner to data from another because there are not standards in DXA equipment. This applies even if the two scanners are made by the same saturator tender. PROCEDURE: Dual-energy x-ray absorptiometry performed with routine technique. Reporting is completed in the form of a T-score. The T-score represents the standard deviation from peak bone mass based on young healthy adult. A Z-score is used for diagnosis in premenopausal women, and for men under the age of 50. FINDINGS: RESULT LUMBAR SPINE L1 - L3 ??BMD: 1.422 g/cm2 T-Score: + 2.0 Z-Score: + 3.5 Change from prior in 2014: ??Increase 11.8%. RESULTS FEMUR Left femoral neck BMD: 0.774 g/cm2 T-Score: - 1.9 Z-Score: - 0.1 Change from prior in 2015: ??Decrease 7.2%. Right femoral neck BMD: 0.734 g/cm2 T-Score: - 2.2 Z-Score: - 0.4 Change from prior in 2015: ??Decrease 11.7%. Left hip BMD: 0.761 g/cm2 T-Score: - 2.0 Z-Score: - 0.4 Change from prior in 2015: ??Decrease 4.3%. Right hip BMD: 0.726 g/cm2 T-Score: - 2.2 Z-Score: - 0.6 Change from prior in 2015: ??Decrease 12.6%. RESULT FOREARM Left Forearm distal radius BMD: 0.556 g/cm2 T-Score: - 3.7 Z-Score: - 1.4 Change from prior: ??None WHO criteria: Normal: T-score at or above -1 SD Osteopenia: T-score between -1.1 and -2.4 SD Osteoporosis: T-score at or below -2.5 SD FRAX RISK CALCULATION (USED FOR OSTEOPENIA ONLY): 10-year probability of major osteoporotic fracture: 20.3%. 10-year probability of hip fracture: 5.2%. Mary PRITCHARD DEXA * CT ABDOMEN PELVIS COLONOGRAPHY DIAGNOSTIC W (04/25/2021 12:53 PM INSURANCE OFFICE MANAGER) Anatomical Region Laterality Modality Abdomen Other 04/25/2021 12:3 1 PM INSURANCE OFFICE MANAGER Narrative 04/25/2021 4:09 PM INSURANCE OFFICE MANAGER EXAM DATE: ? 04/25/2021 EXAM: CT COLONOGRAPHY LOCATION: [facility] DATE/TIME: 04/25/2021 12:15 PM INDICATION: Diagnostic; surveillance of resected polyp(s). Incomplete colonoscopy due to tortuous colon. Colonoscopy reached the transverse colon. COMPARISON: Colonoscopy report from earlier today. TECHNIQUE: Prone and supine CT abdomen and pelvis with air insufflation per rectum, with image postprocessing. Oral contrast. Dose reduction techniques were used. CONTRAST: None. FINDINGS: COLON: Tortuous colon. Diverticulosis. No suspicious colonic polyp or mass. No colonic perforation. All segments well seen. C Score: C1 Note: CT colonography is not intended for the detection of diminutive polyps (i.e. polyps less than or equal to 5mm), the presence of which will not likely size changer of the patient. ADDITIONAL FINDINGS: Moderate hiatal hernia. Mitral annulus calcification. A small calcified granuloma in the left lower lobe. A simple right renal cyst, no follow-up required. No hydronephrosis. The liver, gallbladder, pancreas, spleen and adrenals are unremarkable. No abdominal aortic artery aneurysm. Hysterectomy. Small fat-containing left inguinal and umbilical hernias. Osseous demineralization. Moderate degenerative changes of the spine. E Score: E2, Clinically unimportant finding IMPRESSION: 1. ??No suspicious colonic polyp or mass. 2. ??Diverticulosis. 3. ??No significant extracolonic findings. ?? Procedure Note Morgan Mcmullen MD - 04/25/2021 EXAM DATE: 04/25/2021 EXAM: CT COLONOGRAPHY LOCATION: [facility] DATE/TIME: 04/25/2021 12:15 PM INDICATION: Diagnostic; surveillance of resected polyp(s). Incompletecolonoscopy due to tortuous colon. Colonoscopy reached the transverse colon. COMPARISON: Colonoscopy report from earlier today. TECHNIQUE: Prone and supine CT abdomen and pelvis with air insufflationper rectum, with image postprocessing. Oral contrast. Dose reductiontechniques were used. CONTRAST: None. FINDINGS: COLON: Tortuous colon. Diverticulosis. No suspicious colonic polyp or mass. No colonic perforation. All segments well seen. C Score: C1 Note: CT colonography is not intended for the detection of diminutivepolyps (i.e. polyps less than or equal to 5mm), the presence of which will not likelychange management of the patient. ADDITIONAL FINDINGS: Moderate hiatal hernia. Mitral annulus calcification.A small calcified granuloma in the left lower lobe. A simple right renal cyst, no follow-up required. No hydronephrosis. The liver, gallbladder, pancreas,spleen and adrenals are unremarkable. No abdominal aortic artery aneurysm.Hysterectomy. Small fat-containing left inguinal and umbilical hernias. Osseous demineralization. Moderate degenerative changes of the spine. E Score: E2, Clinically unimportant finding IMPRESSION: 1. No suspicious colonic polyp or mass. 2. Diverticulosis. 3. No significant extracolonic findings. Aly Hood MD CT * ANTI HCV [[id number]] (08/04/2016 8:18 AM CDT) HEPATITIS C ANTIBODY Non-Reacti ve Non-Reacti ve 08/04/2016 3:19 PM CDT [facility] Blood BLOOD SPECIMEN / Unknown Non-Blood / Unknown 08/04/2016 8:18 AM CDT 08/04/2016 8:18 AM CDT Narrative [facility] - 08/04/2016 3:19 PM CDT Antibodies to HCV not detected; does not exclude the possibility of exposure to HCV. Mary PRITCHARD SEND OUTS [facility] [address] [place] [address], from Last 3 Months or Most Recently Relevant to Health Maintenance Advance Directives * DNR (Latest Code Status on File) Date Activated Date Inactivated Comments 02/19/2022 7:27 AM 02/19/2022 3:37 PM Question Answer Comments Code Status Discussion: Reviewed Preferences * Full Code Date Activated Date Inactivated Comments 02/19/2022 6:13 AM 02/19/2022 7:27 AM Question Answer Comments Code Status Discussion: Unable to Assess Preferences, Provider to review later * Full Code Date Activated Date Inactivated Comments 11/03/2014 8:29 AM 11/03/2014 4:47 PM Care Teams Archives Director Relationship Specialty Start Date End Date Mary Solorio PA [address] [place] [address] PCP - General Physician Supervisor Assembling 08/13/21 Soila Pratt MD Oncology 08/08/20 Dariusz Dial MD [address] [place] [address] Sports Medicine - Family Medicine 08/08/20 Zia Sanchez MD [address] [place], [place] [address] [address] Otolaryngology Surgery - Otolaryngology 08/13/21
[2023-12-07] MEDS: OXYCODONE (CR) 10 MG TAB.ER.12H PO (07:13)
[2023-12-07] MEDS: ACETAMINOPHEN 500 MG TABLET 1000 MG PO ×2 (07:13→17:02)
[2023-12-07] MEDS: LACTATED RINGERS 1000 ML 1,000 ML 100 ML IV (07:15)
--- NOTE | 2023-12-07 07:36 | W.PM.H&PU ---
History & Physical Update History & Physical Update H&P Reviewed and patient assessed: No changes noted
--- NOTE | 2023-12-07 07:40 | CRLHL7_ITS ---
For Patients: As a result of the Cures Act, medical imaging exams and procedure reports are released immediately into your electronic medical record. You may view this report before your referring provider. If you have questions, please contact your health care provider. Indication: Postop Technique: Two views right knee Findings/Impression: Hardware from a right total knee arthroplasty is in satisfactory position. Bone alignment is normal. No sign of acute fracture. Postop changes are within normal limits. Dictated by Josiah Mcnamara MD @ 12/08/2023 9:52:25 AM (Electronically Signed)
[2023-12-07] MEDS: SODIUM CHLORIDE 0.9 % (FLUSH) 10 ML SYRINGE IVF (07:43)
[2023-12-07] MEDS: fentaNYL 100 MCG/2 ML inj IVP (08:36)
[2023-12-07] MEDS: MIDAZOLAM HCL 1 MG/ML inj IVP (08:36)
--- NOTE | 2023-12-07 08:46 | SUR.PREOP ---
TIME?OUT:?0835 PT/RN/MDA?VERIFICATION?OF?SURGICAL?SITE Right Knee,?PROCEDURE Nerve Block,?AND?CONSENT OBTAINED?PRIOR?TO?INVASIVE?PROCEDURE.
[2023-12-07] MEDS: CEFAZOLIN 2 GM in 0.9 % SODIUM CHLORIDE Mini-bag 100 ML IVPB (10:42)
[2023-12-07] MEDS: TRANEXAMIC ACID 100 MG/ML INJ 1000 MG IV (10:42)
--- NOTE | 2023-12-07 10:59 | P.NB_ITS ---
Nerve Block Nerve Block Time Seen by Provider: 08:44 Date Seen: 12/07/23 Type of block requested by surgeon for post-operative analgesia: adductor canal Side: right Time out performed: Yes Verification of patient name: Yes Verification of date of : Yes Site marking: site marked Name of person performing procedure: Chavo Continuous monitoring Was continuous monitoring of O2 sat, B/P, cardiac monitor technician, recorded every 15 minutes?: Yes Procedure Checklist: sterile prep, needles and gloves Ultrasound guided. Images saved: Yes Medications given in 5ml increments after negative aspiration: Ropivicaine %: 0.5 mL: 20 Needle gauge: 20 Decadron (mg): 10 Precedex (mcg): 25 Patient tolerated procedure well: Yes Additional comments: Needle noted adjacent to nerve Block Charges Block Charge (with Pro Fee): Femoral Nerve Use of Ultrasound Machine for Block: Yes- US Guidance/pain block
--- NOTE | 2023-12-07 11:00 | P.NB_ITS ---
Nerve Block Nerve Block Time Seen by Provider: 08:44 Date Seen: 12/07/23 Type of block requested by surgeon for post-operative analgesia: geniculars Side: right Time out performed: Yes Verification of patient name: Yes Verification of date of : Yes Site marking: site marked Name of person performing procedure: Chavo Continuous monitoring Was continuous monitoring of O2 sat, B/P, cardiac catheterization technologist, recorded every 15 minutes?: Yes Procedure Checklist: sterile prep, needles and gloves Medications given in 5ml increments after negative aspiration: Ropivicaine %: 0.5 mL: 9 Needle gauge: 25 Patient tolerated procedure well: Yes Block Charges Block Charge (with Pro Fee): Genicular Nerve Block Use of Ultrasound Machine for Block: No
--- NOTE | 2023-12-07 11:00 | W.ANESCHARGE ---
Anesthesia Charges Start Date/Time Anesthesia Start Date: 12/07/23 Anesthesia Start Time: 10:14 Stop Date/Time Anesthesia Stop Date: 12/07/23 Anesthesia Stop Time: 13:48 Summary Extremes of Age - Over 70 or under 1: MDA
--- NOTE | 2023-12-07 11:07 | W.ANESCHARGE ---
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
--- NOTE | 2023-12-07 11:54 | CRLHL7_ITS ---
For Patients: As a result of the Cures Act, medical imaging exams and procedure reports are released immediately into your electronic medical record. You may view this report before your referring provider. If you have questions, please contact your health care provider. Indication: Arthroplasty Technique: Two images right knee IMPRESSION: Tibial component of a total knee arthroplasty noted. No acute fracture. Chronic deformity of the distal tibia. Dictated by Josiah Mcnamara MD @ 12/08/2023 9:43:02 AM (Electronically Signed)
--- NOTE | 2023-12-07 13:09 | PM.ORPRC ---
Procedure Note Date of procedure: 12/07/23 Procedure: PREOPERATIVE DIAGNOSIS: 1. Right knee osteoarthritis, primary, severe POSTOPERATIVE DIAGNOSIS: 1. Right knee osteoarthritis, primary, severe PROCEDURE: 1. Right total knee arthroplasty - subvastus-modifier 22 (33% added time and difficulty for this case given valgus alignment, previous tibial IM nail, need for tibial stem and subsequent increased implants and preparation, as well as severely deficient patella requiring modification of typical patellar preparation). 2. Intraoperative radiographic interpretation (3 separate AP views of the right knee were obtained and interpreted intraoperatively by me assessing tibial alignment and stem positioning within the tibial diaphysis). SURGEON: Baljeet Akins MD. ASSOCIATE PROFESSOR OF CHURCH MUSIC: VALERIE Zamora - Of note, a skilled publisher assistant was critical for this case to aid in patient positioning, tissue retraction, limb manipulation/positioning, and closure. ANESTHESIA: Spinal anesthetic IMPLANTS: DePuy J&J all cemented TKA - Attune PS femur size 5 narrow, size 3 stemmed tibia (50 mm stem), 7 mm poly spacer, 35 mm patella TOURNIQUET: 120 minutes at 300 torr EBL: 100 mL COMPLICATIONS: None evident INDICATIONS: The patient is a pleasant 78-year-old female who has experienced severe right knee pain and difficulty bearing weight. Workup included x-rays which revealed severe osteoarthrosis in the knee. Given the deformity, the dysfunction, and the pain, as well as the failure of nonoperative management, recommendation was made for surgery. FINDINGS: Significant genu valgum with severe patellar deficiency-erosion. The thickest portion of the patella measured 16 mm. The thinnest portion measured 10 mm. Severe osteoarthritis in the patellofemoral and lateral compartment to a lesser degree medial compartment. Significantly degenerative medial and lateral meniscus pathology. Large effusion upon entering joint. Large popliteal cyst also encountered. Severe ankle eversion/pronation of the foot resulting in atypical right lower extremity alignment. DESCRIPTION OF PROCEDURE: Following a thorough discussion of risks, benefits, and alternatives consent was obtained and the right knee was marked. The patient was brought to the operating room and placed supine on the operating table. Induction of anesthesia was undertaken. 1 g IV Ancef and 1 g tranexamic acid was administered within 1 hr of incision preoperatively. Proper time-out was performed identifying proper patient, site, procedure. The operative extremity was prepped and draped in the appropriate sterile fashion using ChloraPrep after the patient was positioned supine with all bony prominences well padded. A longitudinal, anterior, midline skin incision was made starting approximately 3cm proximal to the superior pole of the patella and advanced distal to the tibial tubercle. A subvastus approach was utilized. A medial subperiosteal sleeve was created with knife, finney elevator and curved osteotome. The retropatellar fatpad was resected and the synovium in the suprapatellar pouch excised to visualize the anterior femoral cortex. Femoral preparation was performed via an intramedullary guide. Step drill allowed access into the femoral canal. The distal cutting guide was placed with 5? of valgus and 11 mm cut on the distal femur. Femur was sized using a posterior referencing guide in 3? of external rotation. This found have a best fit with the sizing noted above. The 4 in 1 cutting block was then placed, and the distal femur shaped accordingly. The box cut was then created and the trial implant inserted to confirm appropriate fit. We turned our attention to the proximal tibia. Extramedullary guide was utilized for cutting with the goal of being 90 degree cut from the mechanical axis of the tibia in the varus/valgus plane utilizing tibial crest as the primary alignment. Initially a 2 mm resection was performed from the medial tibial plateau. We eventually needed to make multiple recuts on the tibia a to assess the varus valgus we did need to recut the tibia to improve the varus valgus alignment. To assess the stem positioning and prevent cortical breach, 3 separate AP RIght knee radiographs were obtained intraoperatively and interpreted by me. These showed improved alignment of the tibial stem with each successive radiograph. Ultimately, balancing was achieved in both flexion and extension in both varus and valgus. The knee was able to achieve full extension as well comfortably. The patella was initially measured and found have a thickness of 16 mm at the thickest portion and 10 mm at the thinnest portion. It was resected back to approximately 13.5 mm. It was sized to be a best fit with as noted above. This was drilled, trial placed. All trials were placed and found to have an excellent stability and balance. At this stage, trial implants were removed, the knee was thoroughly irrigated with normal saline, and the cement was mixed. After irrigation, the knee was thoroughly dried, and cement placed, with the real tibial and femoral implants placed along with the patella. Trial poly spacer was placed and confirmed to have excellent range of motion and full extension, and the real poly spacer opened and inserted. All extra cement was removed, and a 3 min Betadine soak performed. Finally, a final irrigation round with normal saline was performed. Closure performed with 0 Vicryl and #0 Stratafix for the quad tendon/retinaculum. 2-0 Vicryl for the subcutaneous and 4-0 Stratafix for subcuticular closure. Dressings were applied and the patient was awoken from anesthesia after the tourniquet deflated and transferred the PACU in stable condition. A skilled publisher assistant was critical for this case to aid in patient positioning, tissue retraction, bone exposure, limb manipulation/positioning, patient safety, and closure. * Again, 33% added time and difficulty for this case given valgus alignment, previous tibial IM nail, need for tibial stem and subsequent increased implants and preparation, as well as severely deficient patella requiring modification of typical patellar preparation. PLAN: 1. Weight bear as tolerated operative extremity. 2. 23 hr perioperative antibiotics. 3. Ice. 4. PT/OT consults for ambulation assistance/mobility education. 5. Social work consult for discharge planning. 6. DVT prophylaxis with at SCDs and aspirin twice daily.
--- NOTE | 2023-12-07 14:30 | SUR.PHASEI ---
patient met discharge criteria per anesthesia
[2023-12-07] MEDS: OXYCODONE 5 MG TABLET PO ×2 (15:18→19:56)
[2023-12-07] MEDS: LACTATED RINGERS 1000 ML 1,000 ML 75 ML IV (15:19)
--- NOTE | 2023-12-07 16:40 | PC.SOCIAL ---
Discharge planning- Patient is requesting placement at SNF. Received an e-mail from Berna Chambers at [facility] requesting referral information. Berna has been in contact with patient's brother and is aware that patient needs SNF and is requesting to go to [facility]. Secure e-mailed facesheet, H&P, and medication list to Berna. Berna requests that progress note and therapy notes be sent to her in the morning. Berna informs that it is likely that [facility] can accept patient (Patient has been there in the past). Met with patient in room to discuss discharge plans. Patient is requesting to go to [facility]. Patient's brother, Marcelino, can provide transportation. Patient will update her brother. Social work should call patient's brother tomorrow morning with discharge plans. Social work will follow up as needed.
[2023-12-07] MEDS: CEFAZOLIN 1 GM in 0.9 % SODIUM CHLORIDE Mini-bag 100 ML IVPB (17:03)
[2023-12-07] MEDS: SENNOSIDES 1 TAB TABLET 2 TAB PO (20:43)
[2023-12-07] MEDS: ASPIRIN 81 MG TABLET EC PO (20:43)
--- NOTE | 2023-12-07 21:37 | P.IMCN_ITS ---
Date of Consult Patient: Hari Patient Consult date: 12/07/23 Requesting Physician: Orthopedics Primary Care Provider: Mary Solorio PA-C Consult Narrative Reason for consult: Post [facility] medical support Narrative: Jelena Dill is a 78 year old woman who underwent an elective right TKA 12/07/[address] Baljeet Akins without apparent complications due to u nderlying progressive end-stage right gonarthrosis. EBL 100 ml. Review of Systems Status of ROS: Reports: 6 or more systems reviewed and unremarkable except as noted in History and below PFSH PFS Medical History (Updated 12/07/23 @ 21:44 by Ronal Quiroga MD) Fracture of medial malleolus, right, closed ?S82.51XA - Displaced fracture of medial malleolus of right tibia, initial encounter for closed fracture (ICD-10) Right knee pain ?M25.561 - Pain in right knee (ICD-10) Breast cancer, left ?C50.912 - Malignant neoplasm of unspecified site of left female breast (ICD- 10) Osteoporosis ?M81.0 - Age-related osteoporosis without current pathological fracture (ICD- 10) Asthma ?J45.909 - Unspecified asthma, uncomplicated (ICD-10) Closed fracture of tibia ?S82.209A - Unspecified fracture of shaft of unspecified tibia, initial encounter for closed fracture (ICD-10) Surgical History (Updated 12/07/23 @ 21:44 by Ronal Quiroga MD) Status post closed fracture of right tibia (10/21/21) ?Z87.81 - Personal history of (healed) traumatic fracture (ICD-10) S/P hardware removal (09/15/22) ?Z98.890 - Other specified postprocedural states (ICD-10) History of surgery on lower extremity (09/15/22) ?Z98.890 - Other specified postprocedural states (ICD-10) S/P ORIF (open reduction internal fixation) fracture (10/21/21) ?Z98.890 - Other specified postprocedural states (ICD-10) ?Z87.81 - Personal history of (healed) traumatic fracture (ICD-10) History of total left knee replacement ?Z96.652 - Presence of left artificial knee joint (ICD-10) H/O: hysterectomy ?Z90.710 - Acquired absence of both cervix and uterus (ICD-10) H/O breast biopsy ?Z98.890 - Other specified postprocedural states (ICD-10) Family History Father Dementia Mother Stomach cancer Brother Diabetes Son Liver cancer Social History What is your current living situation?: I presently have a place to live Problems where you live: no known problems Problems where you live details: none In the past 12 months, utilities in danger of being shut off: no In past 12 months, lack of transportation kept you from medical appts, meetings, work, or getting things needed for daily living: no In the past 12 mos, have been you worried that your food would run out before you had money to buy more?: never true In the past 12 mos, the food you bought just didn't last and you didn't have money to buy more?: never true Highest level of school completed/degree received: high school graduate Smoking Status: Never smoker Do you use any of these nicotine containing products: None Second hand tobacco smoke exposure: No How often do you have a drink containing alcohol: 2-4 times a month Alcohol type: wine How many standard drinks containing alcohol do you have on a typical day: 1 or 2 How often do you have six or more drinks on one occasion: Never AUDIT-C Alcohol total score: 2 Non-prescribed substance use: denies use Caffeine: Yes (Coffee) How often does anyone, including family, friends and others, physically hurt you : never How often does anyone, including family, friends and others, insult or talk down to you: never How often does anyone, including family, friends and others, threaten you with harm: never How often does anyone, including family, friends and others, scream or curse at you: never Are you using contraception or practicing any form of control: No service: No Meds Home Medications and Allergies Home Medications ?Medication ?Instructions ?Recorded ?Confirmed ?Type calcium carbonate 600 mg PO DAILY 12/09/21 12/03/23 History cholecalciferol (vitamin D3) 25 3,000 unit PO .weekly 01/28/22 12/03/23 History mcg (1,000 unit) tablet denosumab 60 mg/mL subcutaneous 60 mg subcut [id number] 09/11/22 12/03/23 History syringe (Prolia) ferrous sulfate 142 mg (45 mg 142 mg PO DAILY 09/11/22 12/03/23 History iron) tablet,extended release (Slow Fe) vit C,S-Cb-cvprsf-lutein-zeaxan 60 1 cap PO DAILY 09/11/22 12/03/23 History mg-13.5 mg-15 mg-2 mg-6 mg capsule (Healthy Eyes Lutein-Zeaxanthin) ibuprofen 200 mg tablet 200 mg PO Q4H PRN 10/31/22 02/20/23 History Allergies Allergy/AdvReac Type Severity Reaction Status Date / Time amoxicillin Allergy Intermediate Hives Verified 12/07/23 07:26 clavulanic acid Allergy Intermediate Hives Verified 12/07/23 07:26 Exam Narrative: Exam Narrative: Examined patient in her hospital room. She appears comfortable and in no acute distress. Vision and hearing are adequate. Alert and oriented to self, place, time, situation. Friendly, articulate, cooperative. No focal motor neurologic deficits. Cranial nerves 3-12 grossly normal. Edentulous. Neck is supple. Lungs clear to auscultation. Heart tones with regular rhythm. Abdomen benign with active bowel sounds, soft, nontender. Moves all 4 extremities. With standby assist and walker she is able to ambulate from bedside to bathroom and back. Const: Vital Signs, click to edit/add: Vital Signs - 24 hr 12/07/23 07:31 12/07/23 08:35 12/07/23 08:40 Temperature 98.6 F Pulse Rate 79 72 70 Respiratory Rate 16 16 16 Blood Pressure 134/75 140/81 H 113/69 Pulse Oximetry 97 100 100 Oxygen Delivery Me thod Room Air Nasal Cannula Nasal Cannula Oxygen Flow Rate 2 2 12/07/23 08:45 12/07/23 13:46 12/07/23 13:50 Temperature 97.2 F L 97.2 F L Pulse Rate 70 56 L 67 Respiratory Rate 16 16 16 Blood Pressure 105/62 99/61 90/74 Pulse Oximetry 100 97 100 Oxygen Delivery Me thod Nasal Cannula OxyMask OxyMask Oxygen Flow Rate 2 6 6 12/07/23 13:55 12/07/23 14:00 12/07/23 14:05 Temperature 97.2 F L 97.2 F L 97.2 F L Pulse Rate 69 70 70 Respiratory Rate 16 19 17 Blood Pressure 98/75 105/78 104/69 Pulse Oximetry 100 100 100 Oxygen Delivery Me thod OxyMask OxyMask Room Air Oxygen Flow Rate 6 6 12/07/23 14:10 12/07/23 14:15 12/07/23 14:22 Temperature 97.2 F L 97.2 F L 96.3 F L Pulse Rate 71 84 87 Respiratory Rate 16 17 16 Blood Pressure 117/74 128/80 123/83 Pulse Oximetry 95 96 95 Oxygen Delivery Me thod Room Air Room Air Room Air Oxygen Flow Rate 12/07/23 14:30 12/07/23 14:45 12/07/23 14:59 Temperature 97 F L 97.1 F L Pulse Rate 86 85 Respiratory Rate 16 16 16 Blood Pressure 115/63 133/85 Pulse Oximetry 97 95 95 Oxygen Delivery Me thod Room Air Room Air Room Air Oxygen Flow Rate 6 12/07/23 15:00 12/07/23 15:15 12/07/23 15:45 Temperature 96.8 F L 97.2 F L 97.2 F L Pulse Rate 82 87 94 Respiratory Rate 16 16 18 Blood Pressure 130/85 134/82 134/89 Pulse Oximetry 95 94 97 Oxygen Delivery Me thod Room Air Room Air Room Air Oxygen Flow Rate 12/07/23 16:15 12/07/23 17:09 12/07/23 18:07 Temperature 97.3 F L 98.2 F 98.5 F Pulse Rate 96 85 105 H Respiratory Rate 18 18 18 Blood Pressure 133/97 H 141/85 H 104/81 Pulse Oximetry 97 97 93 Oxygen Delivery Me thod Room Air Room Air Room Air Oxygen Flow Rate 12/07/23 19:15 12/07/23 20:15 Temperature 97.6 F 97 F L Pulse Rate 101 H 85 Respiratory Rate 20 20 Blood Pressure 117/67 113/98 H Pulse Oximetry 94 96 Oxygen Delivery Me thod Room Air Room Air Oxygen Flow Rate Assessment and Plan Assessment and plan (1) Osteoarthritis of right knee: Problem comment: Severe Status: Acute (2) Status post total right knee replacement: Problem comment: 12/07/2023 Status: Acute (3) Bilateral pes planus: Status: Acute (4) DCIS (ductal carcinoma in situ): Status: Acute (5) Breast cancer, left: Status: Acute (6) Osteoporosis: Status: Acute (7) Eczema: Status: Acute Plan 1. Reviewed impression with patient 2. Answered her questions. 3. Agree with postoperative venous thromboembolism prophylaxis 4. Agree with perioperative antibiotic prophylaxis 5. Agree with physical therapy and occupational therapy 6. Completed hospitalist portion of discharge orders 7. Patient plans on discharging to transitional care services at [facility] in [place], [place] 8. Appreciate the opportunity to see this patient in consultation 9. Orthopedic surgery to inform hospital medicine if we can help in any other way
[2023-12-08] MEDS: ACETAMINOPHEN 500 MG TABLET 1000 MG PO ×3 (00:10→10:49)
[2023-12-08] MEDS: CEFAZOLIN 1 GM in 0.9 % SODIUM CHLORIDE Mini-bag 100 ML IVPB ×2 (00:11→08:36)
[2023-12-08 03:00] VITALS: BP 125/74; PULSE 81; RESP 20; TEMP 36.4; O2SAT 96
[2023-12-08] MEDS: OXYCODONE 5 MG TABLET PO ×3 (03:23→08:38)
[2023-12-08 06:16] LABS: Hemoglobin* 10.5 gm/dL (12.0-16.0); Immature Granulocytes Abs Auto 0.01 K/uL (0.00-0.30); Immature Granulocytes Pct Auto 0.1 %; Lymphocytes Percent Auto 6.7 % (20-44); Mean Corpuscular HGB Conc 31 gm/dL (32-36); Mean Corpuscular Hemoglobin 27 pg (26-34); Mean Corpuscular Volume 86 fL (80-100); Monocytes Percent Auto 8.7 % (0.0-11.0); Neutrophils Percent Auto 84.5 % (42.0-72.0); Platelet Count* 288 K/uL (140-440); RDW Coefficient of Variation % 15.4 % (11.5-15.5); Red Blood Count 3.96 m/uL (4.00-5.20); White Blood Count* 8.51 K/uL (4.50-11.00)
[2023-12-08 06:23] LABS: Slide Review Reflex No
[2023-12-08 06:34] LABS: Potassium* 4.3 mmol/L (3.6-5.1); Sodium* 138 mmol/L (135-149)
[2023-12-08 06:37] LABS: Creatinine* 0.7 mg/dL (0.5-1.5); Est. Creatinine Clearance* 53.29; Estimated Glomerular Filt Rate 90 ml/min
[2023-12-08 06:38] LABS: Blood Urea Nitrogen* 27 mg/dL (7-30)
--- NOTE | 2023-12-08 06:48 | PC.NURSE ---
End of shift [id number]: Pt is A&O, afebrile and VSS. She is SBA with 2ww and gait belt for ambulation and transfers. Right knee dressing is C/D/I and active ice on/off overnight. Pt rates her pain quite high at 8-10/10 but continues to have good mobility and laughs with conversations. Education on pain scale provided to patient and she continued to rate it high. PRN oxycodone given throughout the night, last dose @ 0645. PIV in left wrist is SL and C/D/I. Continent of B&B; no BM this shift. She?s been voiding with no issue & tolerates PO intake with no nausea. Denies lightheadedness with activity. Pt plans to discharge to [facility] for STR when medically stable. ?
[2023-12-08 07:24] VITALS: BP 115/74; PULSE 76; RESP 16; TEMP 36.5; O2SAT 96
[2023-12-08] MEDS: SENNOSIDES 1 TAB TABLET 2 TAB PO (08:38)
[2023-12-08] MEDS: ASPIRIN 81 MG TABLET EC PO (08:38)
--- NOTE | 2023-12-08 10:09 | P.DS_ITS ---
DS: Providers Provider Date Seen: 12/08/23 Date of admission: 12/07/23 07:07 Primary care physician: Mary Solorio PA-C Admitting Clinician: Baljeet Akins MD Consults: 12/07/23 14:24 Consult to Occupational Therapy [CONS] Routine Comment: Reason(s) for OT Consult:: ADLs Prior to Discharge Any Restrictions?:: See Comment Comment: See nursing activity order for any restrictions. Consult to Physical Therapy [CONS] Routine Comment: Ambulate in the [place] today. Reason(s) for PT Consult:: TKA TX Protocol POD#0 Any Restrictions?:: See Comment Comment: See nursing activity order for any restrictions. Consult to Physician [CONS] Routine Comment: Consulting Provider: Hospitalists Has provider been notified: No Consult to Senior Paralegal [CONS] Routine Comment: Reason for Consult:: Discharge Planning Needs Attending Physician on discharge: Baljeet Akins MD Date of Discharge: 12/08/23 DS: Diagnosis Discharge Diagnosis (1) Status post total right knee replacement: Status: Acute Problem details: 12/07/2023 DS: Summary Hospital Course Hospital Course: Odilia is a 78-year-old female who was admitted to the hospital on 12/06 for an elective right knee replacement. Patient did well postoperatively and comorbidities remained stable. No changes made to home medications upon discharge. Prophylaxis and pain management per Orthopedic surgery team. Patient will be discharged to [facility] for rehab with routine follow-up with therapies, orthopedic surgery, and PCP. Time Spent with Patient Time attestation: Total time spent providing and/or coordinating discharge services: Exam Narrative: Exam Narrative: GEN: Alert and oriented, sitting comfortably in bedside chair, nontoxic HEENT: EOMIs bilaterally, no scleral icterus CV: RRR, No concerning murmurs R: LCTA bilaterally without concerning wheezing Ext: Trace ankle edema bilaterally, symmetric Skin: No concerning skin lesions or rashes on exposed skin Neuro: Nonfocal Psych: Appropriate Const: Vital Signs, click to edit/add: Vital Signs - 24 hr 12/07/23 13:46 12/07/23 13:50 12/07/23 13:55 Temperature 97.2 F L 97.2 F L 97.2 F L Pulse Rate 56 L 67 69 Pulse Rate [Pulse Oximeter] Respiratory Rate 16 16 16 Blood Pressure 99/61 90/74 98/75 Blood Pressure [Le ft Arm] Blood Pressure [Ri ght Arm] Pulse Oximetry 97 100 100 Oxygen Delivery Me thod OxyMask OxyMask OxyMask Oxygen Flow Rate 6 6 6 12/07/23 14:00 12/07/23 14:05 12/07/23 14:10 Temperature 97.2 F L 97.2 F L 97.2 F L Pulse Rate 70 70 71 Pulse Rate [Pulse Oximeter] Respiratory Rate 19 17 16 Blood Pressure 105/78 104/69 117/74 Blood Pressure [Le ft Arm] Blood Pressure [Ri ght Arm] Pulse Oximetry 100 100 95 Oxygen Delivery Me thod OxyMask Room Air Room Air Oxygen Flow Rate 6 12/07/23 14:15 12/07/23 14:22 12/07/23 14:30 Temperature 97.2 F L 96.3 F L 97 F L Pulse Rate 84 87 86 Pulse Rate [Pulse Oximeter] Respiratory Rate 17 16 16 Blood Pressure 128/80 123/83 115/63 Blood Pressure [Le ft Arm] Blood Pressure [Ri ght Arm] Pulse Oximetry 96 95 97 Oxygen Delivery Me thod Room Air Room Air Room Air Oxygen Flow Rate 12/07/23 14:45 12/07/23 14:59 12/07/23 15:00 Temperature 97.1 F L 96.8 F L Pulse Rate 85 82 Pulse Rate [Pulse Oximeter] Respiratory Rate 16 16 16 Blood Pressure 133/85 130/85 Blood Pressure [Le ft Arm] Blood Pressure [Ri ght Arm] Pulse Oximetry 95 95 95 Oxygen Delivery Me thod Room Air Room Air Room Air Oxygen Flow Rate 6 12/07/23 15:15 12/07/23 15:45 12/07/23 16:15 Temperature 97.2 F L 97.2 F L 97.3 F L Pulse Rate 87 94 96 Pulse Rate [Pulse Oximeter] Respiratory Rate 16 18 18 Blood Pressure 134/82 134/89 133/97 H Blood Pressure [Le ft Arm] Blood Pressure [Ri ght Arm] Pulse Oximetry 94 97 97 Oxygen Delivery Me thod Room Air Room Air Room Air Oxygen Flow Rate 12/07/23 17:09 12/07/23 18:07 12/07/23 19:15 Temperature 98.2 F 98.5 F 97.6 F Pulse Rate 85 105 H 101 H Pulse Rate [Pulse Oximeter] Respiratory Rate 18 18 20 Blood Pressure 141/85 H 104/81 117/67 Blood Pressure [Le ft Arm] Blood Pressure [Ri ght Arm] Pulse Oximetry 97 93 94 Oxygen Delivery Me thod Room Air Room Air Room Air Oxygen Flow Rate 12/07/23 20:15 12/07/23 23:00 12/07/23 23:00 Temperature 97 F L Pulse Rate 85 Pulse Rate [Pulse Oximeter] Respiratory Rate 20 18 Blood Pressure 113/98 H Blood Pressure [Le ft Arm] Blood Pressure [Ri ght Arm] Pulse Oximetry 96 96 Oxygen Delivery Me thod Room Air Oxygen Flow Rate 12/07/23 23:00 12/07/23 23:00 12/08/23 03:00 Temperature 97 F L 97.5 F L Pulse Rate Pulse Rate [Pulse Oximeter] 60 81 Respiratory Rate 18 18 20 Blood Pressure Blood Pressure [Le ft Arm] 125/74 Blood Pressure [Ri ght Arm] 117/75 Pulse Oximetry 96 96 96 Oxygen Delivery Al thod Room Air Room Air Room Air Oxygen Flow Rate 12/08/23 07:24 12/08/23 07:24 12/08/23 07:24 Temperature 97.7 F Pulse Rate Pulse Rate [Pulse Oximeter] 76 Respiratory Rate 16 16 Blood Pressure Blood Pressure [Le ft Arm] 115/74 Blood Pressure [Ri ght Arm] Pulse Oximetry 96 96 96 Oxygen Delivery Me thod Room Air Room Air Oxygen Flow Rate 0 DS: Data Data Completed and Pending Labs on day of discharge: Labs from last 24 hours 12/08/23 05:27 WBC 8.51 RBC 3.96 L Hgb 10.5 L Hct 34.0 MCV 86 MCH 27 MCHC 31 L RDW Coeff of Rafi 15.4 Plt Count 288 Neut % (Auto) 84.5 H Lymph % (Auto) 6.7 L Hodgeman % (Auto) 8.7 Eos % (Auto) 0.0 Baso % (Auto) 0.0 Neut # (Auto) 7.20 H Lymph # (Auto) 0.60 L Hodgeman # (Auto) 0.70 Eos # (Auto) 0.00 Baso # (Auto) 0.00 Abs Immat Gran (auto) 0.01 Imm/Tot Granulo (auto) 0.1 Sodium 138 Potassium 4.3 BUN 27 Creatinine 0.7 Estimated Creat Clear 53.29 Estimated GFR 90 Discharge Plan Discharge Disposition: Xfer [facility] Date of Admission: 12/07/23 07:07 Attending Provider on Discharge: April Gonzalez Consulting Providers: April Gonzalez; Robby Whipple; Tex Robbins; Jackie Otero; Maddie Matthew; María Elena Ivan; Madelin Weaver; Ronal Quiroga; Tamika Medina; Brett Tate; Jake Teague; Harvey Obrien; Stu Jackson; Chandler Treadwell; Kaylen Alonzo; Constanza Hurtado; Moose Herrera; Denis Bishop; Jeremy Stanford; Colten Akhtar; Jose Antonio Walker Primary Care Provider: Mary Solorio Condition: Stable Anticipated Discharge Date/Time: 12/08/23 10:07 Discharge Medications: New sennosides [Senna Lax] 8.6 mg Tablet 8.6 mg PO BID Qty: 30 0RF aspirin 81 mg Tablet,Delayed Release (Dr/Ec) 81 mg PO BID Qty: 60 0RF acetaminophen 500 mg Tablet 1,000 mg PO Q6H Qty: 90 0RF bisacodyl 10 mg Suppository 10 mg AR DAILY PRN (Reason: Constipation) Qty: 30 0RF oxycodone 5 mg Tablet 5 mg PO Q4H PRN (Reason: Pain) Qty: 20 0RF Continued calcium carbonate 600 mg calcium (1,500 mg) tablet 600 mg PO DAILY cholecalciferol (vitamin D3) 25 mcg (1,000 unit) tablet 3,000 unit PO .weekly Slow Fe 142 mg (45 mg iron) tablet extended release 142 mg PO DAILY Healthy Eyes Lutein-Zeaxanthin 60 mg-13.5 mg- 15 mg-2 mg-6 mg capsule 1 cap PO DAILY Held Prolia 60 mg/mL syringe 60 mg subcut [id number] Hold Instructions: Resume on 12/28/23. Resume twice per year dosing per instructions from your physician after you have recovered from this knee replacement. Discontinued ibuprofen 200 mg tablet 200 mg PO Q4H PRN Discharge Orders: Discharge Order (Routine); Ordered 12/08/23 Ordered By: April Gonzalez Consulting provider completed their portion of the discharge: Yes Activity Level: Activity as Tolerated, Weight Bearing as Tolerated, Use Cane and Use Walker Activity Detail: Wound: ? Remove surgical dressing after 1 week; remove sooner if integrity is in question. ? No immersing wound in water; showering okay; light scrub with your hand and body soap, rinse, dab dry ? Sutures are under the skin, will dissolve; allow surgical glue to come off naturally; do not scrub the wound or apply ointments/lotions ? Call our office with any redness that streaks, excessive drainage from the wound, or wound gapping. Ice/Elevate: ? Ice as needed for swelling and discomfort (cryocuff or ice pack); elevate extremity frequently above the heart. Motion/Exercise: ? Weight bear as tolerated operative extremity (walker/cane for ambulation assistance as needed) ? Per PT/OT. ? Straight leg raises daily: 1-2 sets of 10 reps Pain Medications: ? Oral narcotic as prescribed. Wean as tolerated. Additional acetaminophen and ibuprofen as needed. Blood Clot Prevention (DVT): ? Medication: 81 mg aspirin by mouth twice daily (1 month) Driving: ? Do not drive while taking narcotic pain medication ? Anticipate 4-6 weeks no [address] if operative leg is driving leg Dental: ? No elective dental work for 6 months post-op. If there is an urgent/emergent dental need, contact our office for an antibiotic prescription. Smoking/Alcohol: ? Do not smoke; do no drink alcohol especially when taking postoperative oral narcotic medication Seek Care from you Primary Care Provider if you experience the following issues in the postoperative phase and beyond: ? Bacterial infections such as: pneumonia, bacterial skin infection (cellulitis), UTI, high fever, chills unrelated to the operative body part - call your primary care physician urgently for treatment in hopes to protect your health and the metal implant. Referrals: ? PT, OT per patient preference - evaluate & treat total knee arthroplasty protocol (gait training, ROM, ADLs) Vaccines: ? No vaccines until 4-6 weeks postop Follow up: ? PA-C visit in 1 week or once discharged from SNF ? Ortho surgeon follow-up in 6 weeks; repeat radiographs three views operative knee If there are any acute concerns regarding your surgery, please call our orthopedic clinic ([phone]) Discharge Diet: Regular Follow Up Appointments: Mary Solorio PA-C [Primary Care Provider] - Forms: MyHealth Info Instructions Admit to: SNF Discharge Potential: Good Length of Stay: <30 days Can use facility standing orders?: Yes Code Status: Full Code TEDs: N/A Rehab Potential: Good Therapy: Physical Therapy and Occupational Therapy Therapy Orders: Evaluate and Treat, Gait Training, Knee ROM, ADL and Total Knee Protocol Oxygen: No Urinary Catheter: No Glucose Checks: n/a Next INR: n/a Orders are good >30 days: Yes Signature: April Gonzalez MD
--- NOTE | 2023-12-08 10:24 | PM.ORPN ---
Subjective Subjective Date Seen: 12/08/23 Principal diagnosis: Status postop day 1 right total knee arthroplasty Interval history: Patient reports doing well. No acute events over night. Pain managed with scheduled and PRN medications, ice. DVT prophylaxis: 81 mg aspirin by mouth twice daily, SCDs, walking. Denies fevers, chills, aches, N/V, CP, SOB/OCAMPO, or lightheadedness. Ortho Exam Narrative Exam Narrative: -Patient appears comfortable; no apparent acute distress -Alert and oriented times 3 -Operative knee mildly swollen; soft tissues supple; no ecchymosis; no erythematous streaking Warmth appropriate -Surgical dressing clean, dry, intact; no drainage -Bilateral calfs soft; no significant swelling, edema, tenderness, erythema, discoloration, warmth, or palpable cords -2+ DP/PT pulses, intact dermatomes and myotomes distally (5/5 strength) Const Vital Signs, click to edit/add: Vital Signs - 24 hr 12/07/23 13:46 12/07/23 13:50 12/07/23 13:55 Temperature 97.2 F L 97.2 F L 97.2 F L Pulse Rate 56 L 67 69 Pulse Rate [Pulse Oximeter] Respiratory Rate 16 16 16 Blood Pressure 99/61 90/74 98/75 Blood Pressure [Left Arm] Blood Pressure [Right Arm] Pulse Oximetry 97 100 100 Oxygen Delivery Method OxyMask OxyMask OxyMask Oxygen Flow Rate 6 6 6 12/07/23 14:00 12/07/23 14:05 12/07/23 14:10 Temperature 97.2 F L 97.2 F L 97.2 F L Pulse Rate 70 70 71 Pulse Rate [Pulse Oximeter] Respiratory Rate 19 17 16 Blood Pressure 105/78 104/69 117/74 Blood Pressure [Left Arm] Blood Pressure [Right Arm] Pulse Oximetry 100 100 95 Oxygen Delivery Method OxyMask Room Air Room Air Oxygen Flow Rate 6 12/07/23 14:15 12/07/23 14:22 12/07/23 14:30 Temperature 97.2 F L 96.3 F L 97 F L Pulse Rate 84 87 86 Pulse Rate [Pulse Oximeter] Respiratory Rate 17 16 16 Blood Pressure 128/80 123/83 115/63 Blood Pressure [Left Arm] Blood Pressure [Right Arm] Pulse Oximetry 96 95 97 Oxygen Delivery Method Room Air Room Air Room Air Oxygen Flow Rate 12/07/23 14:45 12/07/23 14:59 12/07/23 15:00 Temperature 97.1 F L 96.8 F L Pulse Rate 85 82 Pulse Rate [Pulse Oximeter] Respiratory Rate 16 16 16 Blood Pressure 133/85 130/85 Blood Pressure [Left Arm] Blood Pressure [Right Arm] Pulse Oximetry 95 95 95 Oxygen Delivery Method Room Air Room Air Room Air Oxygen Flow Rate 6 12/07/23 15:15 12/07/23 15:45 12/07/23 16:15 Temperature 97.2 F L 97.2 F L 97.3 F L Pulse Rate 87 94 96 Pulse Rate [Pulse Oximeter] Respiratory Rate 16 18 18 Blood Pressure 134/82 134/89 133/97 H Blood Pressure [Left Arm] Blood Pressure [Right Arm] Pulse Oximetry 94 97 97 Oxygen Delivery Method Room Air Room Air Room Air Oxygen Flow Rate 12/07/23 17:09 12/07/23 18:07 12/07/23 19:15 Temperature 98.2 F 98.5 F 97.6 F Pulse Rate 85 105 H 101 H Pulse Rate [Pulse Oximeter] Respiratory Rate 18 18 20 Blood Pressure 141/85 H 104/81 117/67 Blood Pressure [Left Arm] Blood Pressure [Right Arm] Pulse Oximetry 97 93 94 Oxygen Delivery Method Room Air Room Air Room Air Oxygen Flow Rate 12/07/23 20:15 12/07/23 23:00 12/07/23 23:00 Temperature 97 F L Pulse Rate 85 Pulse Rate [Pulse Oximeter] Respiratory Rate 20 18 Blood Pressure 113/98 H Blood Pressure [Left Arm] Blood Pressure [Right Arm] Pulse Oximetry 96 96 Oxygen Delivery Method Room Air Oxygen Flow Rate 12/07/23 23:00 12/07/23 23:00 12/08/23 03:00 Temperature 97 F L 97.5 F L Pulse Rate Pulse Rate [Pulse Oximeter] 60 81 Respiratory Rate 18 18 20 Blood Pressure Blood Pressure [Left Arm] 125/74 Blood Pressure [Right Arm] 117/75 Pulse Oximetry 96 96 96 Oxygen Delivery Method Room Air Room Air Room Air Oxygen Flow Rate 12/08/23 07:24 12/08/23 07:24 12/08/23 07:24 Temperature 97.7 F Pulse Rate Pulse Rate [Pulse Oximeter] 76 Respiratory Rate 16 16 Blood Pressure Blood Pressure [Left Arm] 115/74 Blood Pressure [Right Arm] Pulse Oximetry 96 96 96 Oxygen Delivery Method Room Air Room Air Oxygen Flow Rate 0 Assessment and Plan Assessment and plan (1) Status post total right knee replacement: Problem details: POD 1, (date of surgery 12/07/2023) Status: Acute Assessment and Plan: - Complete 23 hour perioperative antibiotics. - PT/OT consult for education and assistance. - Social work consult for discharge planning - SNF requested by patient - Prescribed analgesics as needed - DVT prophylaxis: 81 mg aspirin by mouth twice daily and SCDs - Anticipation is for discharge to SNF, [facility] today, 12/08/2023 if the patient remains medically stable, pain is controlled, and they are safe with mobilization. Private vehicle transportation.
[2023-12-08 10:40] VITALS: BP 110/62; PULSE 87; RESP 18; TEMP 36.9; O2SAT 96
--- NOTE | 2023-12-08 11:10 | PC.SOCIAL ---
Discharge planning: Pt has been accepted to [facility] today for short term rehab placement in a shared room. Pt will accept the room and her brother will transport her to [facility] by 2pm today. [employer] worker secure emailed the discharge orders to Berna at [facility] at 10:30am, and also sent Berna the pre-admission screening number. [id number]. Social work to follow-up as needed.
--- NOTE | 2023-12-08 12:03 | PC.NURSE ---
Pt alert and oriented. Pt had complaints of pain ranging 5-10; see EMAR for intervention. Pt's VSS. Pt up with SBA, walker and gait belt. Pt's IV removed; catheter intact. Pt discharged to [facility] and transported by brother.
== END 2023-12-08 12:00 | DRG 470 ==
PROVIDERS: Admitting Provider Orthopaedic Surgery Sports Medicine; PCP Physician Assistant Medical; Visit Provider Orthopaedic Surgery Sports Medicine
PROC: 0SRC0J9 Replacement of Right Knee Joint with Synthetic Substitute, Cemented, Open Approach (ICD-10-PCS; CPT 27447; principal; 2023-12-07 09:30)
DX: M17.11 Unilateral primary osteoarthritis, right knee (principal); G89.18 Other acute postprocedural pain; M21.42 Flat foot [pes planus] (acquired), left foot; M21.41 Flat foot [pes planus] (acquired), right foot; D05.12 Intraductal carcinoma in situ of left breast; M81.0 Age-related osteoporosis without current pathological fracture; L30.9 Dermatitis, unspecified; Z85.3 Personal history of malignant neoplasm of breast
CPT/HCPCS: 01402; 36415; 64447; 64454; 73560; 76942; 82565; 84132; 84295; 84520; 85025; 97110; 97116; 97161; 97165; 97530; 97535; 99100; A9270; C1776; J0690; J1100; J2250; J2405; J2704; J2795; J3010; J7120